=== PATIENT | male | born 1935 | race Caucasian/White ===

== ENCOUNTER 2017-07-08 19:30 | Emergency (ER) | payer MEDICARE, BC ==
[2017-07-08] MEDS ORDERED: Lidocaine 1% 20 ML MDV ONE (20:04)
[2017-07-08] MEDS ORDERED: Lidocaine 1% 20 ML MDV INJECT ONE (20:10)
[2017-07-08] MEDS ORDERED: Bacitracin/Neomycin/Polymyxin B Oint 0.9 GM U/D Packet ONE (20:24)
[2017-07-08] MEDS ORDERED: Diphtheria,Pertussis(Acell),Tetanus Vaccine 0.5 ML SDV IM ONE (20:33)
[2017-07-08] MEDS ORDERED: Bacitracin/Neomycin/Polymyxin B Oint 0.9 GM U/D Packet TOP ONE (20:35)
--- NOTE | 2017-07-08 20:39 | EDM.PDOC ---
ED HPI GENERAL MEDICAL PROBLEM - General Chief Complaint: Laceration Stated Complaint: left pinkie laceration Time Seen by Provider: 07/08/17 20:33 Source of Information: Reports: Patient History Limitations: Reports: No Limitations - History of Present Illness INITIAL COMMENTS - FREE TEXT/NARRATIVE: Patient is a 81-year-old gentleman who presents emergency department this evening with a complaint of laceration to the left pinky. Patient states that he was climbing over barbed wire fence and sustained laceration to right pinkie. Patient denies any other injury, chest pain, shortness of breath, or bleeding disorder. Onset: Today Onset Date: 07/08/17 Onset Time: 13:00 Duration: Hour(s): Location: Reports: Upper Extremity, Right Quality: Reports: Ache Severity: Mild Improves with: Reports: None Worsens with: Reports: None Context: Reports: Trauma Associated Symptoms: Reports: No Other Symptoms Right 5-Little finger Pain Score (Numeric/FACES): 4 - Related Data Allergies Allergy/AdvReac Type Severity Reaction Status Date / Time No Known Drug Allergies Allergy none Verified 07/08/17 20:14 Home Meds: Home Meds Cephalexin [Keflex] 500 mg PO TID #21 cap 07/08/17 [Rx] ED ROS GENERAL - Review of Systems Review Of Systems: ROS reveals no pertinent complaints other than HPI. Constitutional: Reports: No Symptoms HEENT: Reports: No Symptoms Respiratory: Reports: No Symptoms Cardiovascular: Reports: No Symptoms Endocrine: Reports: No Symptoms GI/Abdominal: Reports: No Symptoms : Reports: No Symptoms Musculoskeletal: Reports: No Symptoms Skin: Reports: Wound (right dital pinky laceration) Neurological: Reports: No Symptoms Psychiatric: Reports: No Symptoms Hematologic/Lymphatic: Reports: Anemia Immunologic: Reports: No Symptoms ED EXAM, SKIN/RASH Exam: See Below Exam Limited By: No Limitations General Appearance: Alert, WD/WN, No Apparent Distress Throat/Mouth: Normal Inspection, Normal Oropharynx, No Airway Compromise Respiratory/Chest: No Respiratory Distress Extremities: Other (right 5th digit laceration to distal aspect) Neurological: Oriented, Normal Cognition Psychiatric: Normal Affect, Normal Mood Skin: Warm, Dry, Intact, Normal Color, No Rash Location, Skin: Upper Extremity, Right ED SKIN PROCEDURES - Laceration/Wound Repair Right Distal Finger Lac/Wound length In cm: 2 Appearance: Subcutaneous, Clean Distal NVT: Neuro & Vascular Intact, No Tendon Injury Anesthetic Type: Digital Local Anesthesia - Lidocaine (Xylocaine): 1% Plain Local Anesthetic Volume: 2cc Skin Prep: Providone-Iodine (Betadine) Exploration/Debridement/Repair: Minimal Debridement Closed with: Sutures Suture Size: 4-0 Suture Type: Nylon, Interrupted Sterile Dressing Applied: Nurse Tetanus Status Addressed: Yes Course - Vital Signs Last Recorded V/S: Last Vital Signs Temp 98.6 F 07/08/17 19:58 Pulse 82 07/08/17 19:58 Resp 16 07/08/17 19:58 BP 202/86 H 07/08/17 19:58 Pulse Ox 97 07/08/17 19:58 - Orders/Labs/Meds Orders: Active Orders 24 hr Category Date Time Status Vaccines to be Administered [RC] PER UNIT ROUTINE Care 07/08/17 20:34 Ordered Fingers Fifth Digit Rt F9 [CR] Stat Exams 07/08/17 19:45 Taken Diphth,Pertuss(Acell),Tet Vac [Adacel] Med 07/08/17 20:33 Once 0.5 ml IM .ONCE ONE Meds: Medications Discontinued Medications Generic Name Dose Route Start Last Admin Trade Name Freq PRN Reason Stop Dose Admin Lidocaine HCl Confirm 07/08/17 20:04 Xylocaine 1% Administered 07/08/17 20:05 Dose 20 ml .ROUTE .STK-MED ONE Neomycin/Polymyxin/Bacitracin Confirm 07/08/17 20:24 Triple Antibiotic Oint Administered 07/08/17 20:25 Dose 1 each .ROUTE .STK-MED ONE - Re-Assessments/Exams Free Text/Narrative Re-Assessment/Exam: 07/08/17 20:52 PATIENT AFEBRILE, NONTOXIC APPEARING. VITAL SIGNS STABLE. PATIENT TOLERATED PROCEDURE WELL. PATIENT WILL FOLLOW UP WITH PRIMARY DOCTOR IN 10 DAYS FOR SUTURE REMOVAL. Departure - Departure Time of Disposition: 20:44 Disposition: Home, Self-Care 01 Condition: Good Clinical Impression: Laceration of finger, little Qualifiers: Encounter type: initial encounter Damage to nail status: without damage Foreign body presence: without foreign body Laterality: right Qualified Code(s) : S61.216A - Laceration without foreign body of right little finger without damage to nail, initial encounter - Discharge Information Instructions: Laceration Care, Adult, [id number], Stitches, Skip, or Adhesive Wound Closure, [id number] Additional Instructions: FOLLOW UP WITH PRIMARY DOCTOR TO HAVE SUTURES REMOVED IN 10 DAYS - My Orders Last 24 Hours: My Active Orders 07/08/17 19:45 Fingers Fifth Digit Rt F9 [CR] Stat 07/08/17 20:33 Diphth,Pertuss(Acell),Tet Vac [Adacel] 0.5 ml IM .ONCE ONE 07/08/17 20:34 Vaccines to be Administered [RC] PER UNIT ROUTINE - Assessment/Plan Last 24 Hours: My Active Orders 07/08/17 19:45 Fingers Fifth Digit Rt F9 [CR] Stat 07/08/17 20:33 Diphth,Pertuss(Acell),Tet Vac [Adacel] 0.5 ml IM .ONCE ONE 07/08/17 20:34 Vaccines to be Administered [RC] PER UNIT ROUTINE Assessment:: right 5th digit laceration repair Plan: f/u with pcp for ssuture removal
== END 2017-07-08 21:00 | disposition home or self-care (01) ==
LOC: KA.ED 19:30
DX: S61.216A Laceration without foreign body of right little finger without damage to nail, initial encounter (principal); Z23 Encounter for immunization; W45.8XXA Other foreign body or object entering through skin, initial encounter; Y93.39 Activity, other involving climbing, rappelling and jumping off
CPT/HCPCS: 12001; 73140-F9; 90471; 90715; 99283